=== PATIENT | female | born 1960 | race Caucasian/White ===

== ENCOUNTER 2022-09-16 15:57 | Emergency (ER) | payer MEDICAID ==
[~2022-09-16] VITALS: Ht 175 cm; Wt 80.0 kg
[2022-09-16] MEDS ORDERED: ADENOSINE 6 MG/2 ML (ADENOCARD) VIAL IV ONE ×2 (16:14→16:30)
[2022-09-16] MEDS ORDERED: NS IV 1000 ML 1,000 ML IV STA (16:19)
[2022-09-16] MEDS ORDERED: NS IV 1000 ML 1,000 ML ONE (16:19)
--- NOTE | 2022-09-16 16:19 | ED Cardiac General ---
History of Present Illness General Chief Complaint: Chest Pain Stated Complaint: BP HIGH,HEARTRATE HIGH,CP Source: patient, family Exam Limitations: no limitations History of Present Illness Date Seen by Provider: Sep 16, 2022 Time Seen by Provider: 15:59 Initial Comments 61-year-old female with past medical history of prediabetes and SVT coming in due to heart palpitations. Started around 230 this afternoon where she felt like her heart was racing. Feels a little lightheaded with it. Noticed that her blood pressure was elevated to the 180s systolic. Only medication she takes daily is metformin. Has gone to the ER many years ago for SVT in which she received adenosine. She is also had a stress test since then which was normal. Otherwise denying any other acute complaints. The only stimulant she uses is coffee, and she had about a half a cup this morning. Allergies and Home Medications Allergies Coded Allergies: No Known Drug Allergies (Unverified , 09/16/22) Patient Home Medication List Home Medication List Reviewed: Yes Review of Systems Review of Systems Constitutional: dizziness; No fever EENTM: No Symptoms Reported Respiratory: No Symptoms Reported Cardiovascular: Palpitations Gastrointestinal: No Symptoms Reported Genitourinary: No Symptoms Reported Musculoskeletal: no symptoms reported Skin: no symptoms reported Psychiatric/Neurological: No Symptoms Reported Endocrine: No Symptoms Reported Hematologic/Lymphatic: No Symptoms Reported All Other Systems Reviewed Negative Unless Noted: Yes Past Ygdrejz-Phpbsn-Wgjilz Hx Patient Social History Tobacco Use?: No Past Medical History Surgeries: No Physical Exam Vital Signs Capillary Refill : Height, Weight, BMI Height: '" Weight: lbs. oz. kg; BMI Method: General Appearance: WD/WN, Anxious HEENT: PERRL/EOMI, Normal ENT Inspection, Pharynx Normal Neck: Full Range of Motion, Normal Inspection, Non Tender, Supple Respiratory: Chest Non Tender, Lungs Clear, Normal Breath Sounds, No Accessory Muscle Use, No Respiratory Distress Cardiovascular: No Edema, Normal Peripheral Pulses, Tachycardia Gastrointestinal: Normal Bowel Sounds, Non Tender, Soft; No Distended, No Guarding Extremity: Normal Capillary Refill, Normal Inspection, Normal Range of Motion, Non Tender, No Calf Tenderness, No Pedal Edema Neurologic/Psychiatric: Alert, No Motor/Sensory Deficits, Normal Mood/Affect Skin: Normal Color, Warm/Dry Lymphatic: No Adenopathy Progress/Results/Core Measures Results/Orders My Orders Orders - OLEG RICHARDSON MD Adenosine Injection (Adenocard Injection (09/16/22 16:14) Ns Iv 1000 Ml (Sodium Chloride 0.9%) (09/16/22 16:19) Adenosine Injection (Adenocard Injection (09/16/22 16:30) Diltiazem Cd 24 Hr Capsule (Cardizem Cd (09/17/22 09:00) Ns Iv 1000 Ml (Sodium Chloride 0.9%) (09/16/22 16:19) Ekg Tracing (09/16/22 16:22) Ekg Tracing (09/16/22 16:22) Diltiazem Cd 24 Hr Capsule (Cardizem Cd (09/16/22 16:34) Medications Given in ED Current Medications Medications Dose Ordered Sig/Gely Route Start Time Stop Time Status Last Admin Dose Admin Adenosine 12 mg ONCE ONCE IV 09/16/22 16:30 12 16:31 DC 09/16/22 16:36 12 MG Sodium Chloride 1,000 ml @ ud STK-MED ONCE .ROUTE 09/16/22 16:19 09/16/22 16:22 DC 09/16/22 16:44 1,000 MLS/HR Progress Progress Note : Progress Note 61-year-old female presenting for SVT. Patient was mildly hypertensive on presentation and was in stable SVT. Tried vagal maneuvers which were unsuccessful. An IV was then placed and she was given 12 mg of adenosine which converted her. She was given IV fluids followed by oral Cardizem afterwards. I will have her follow-up with cardiology given the repeat nature of this. Afterwards, she was completely asymptomatic and back to baseline Initial ECG Impression Date: Sep 16, 2022 Initial ECG Impression Time: 16:14 Initial ECG Rate: 182 Initial ECG Rhythm: SVT Comment Normal axis, some ST depression globally which is likely rate dependent with her SVT EKG : EKG Time: 16:21 Rate: 109 Rhythm: S.Tach Comment Narrow QRS, normal axis, no significant ST changes or T wave abnormality Departure Impression Primary Impression: SVT (supraventricular tachycardia) Disposition: 01 HOME, SELF-CARE Condition: Improved Departure-Patient Inst. Decision time for Depature: 17:15 Referrals: JOSEFINA ROSALES JR, MD Patient Instructions: Supraventricular Tachycardia (SVT) Add. Discharge Instructions: You into a rhythm called SVT. This is not particularly dangerous in most cases. Its not really related to anything such as a heart attack. I do recommend following up with a punchboard filling machine operator to see if there are any medications that can put you on to help prevent this from happening in the future. Dr. Rosales is a punchboard filling machine operator that follows here in [place], his numbers in this paperwork. Work/School Note: Family Work Note, Patient Received Medical Care In the Emergency Department On: Sep 16, 2022 Patient Will Be Able to Return to Work/School On: Sep 17, 2022 Work Release Form Date Seen in the Emergency Department: Sep 16, 2022 Return to Work: Sep 17, 2022 Restrictions: No Restrictions OLEG RICHARDSON MD Sep 16, 2022 16:19
[2022-09-16] MEDS ORDERED: dilTIAZem120 MG (CARDIZEM CD) CAP PO ONE (16:34)
[2022-09-16 17:45] VITALS: BP 164/79
[2022-09-17] MEDS ORDERED: dilTIAZem120 MG (CARDIZEM CD) CAP PO SCH (09:00)
== END 2022-09-16 17:12 | disposition home or self-care (01) ==
LOC: EDUNIT# 15:57 → ER FS 15:59
DX: I47.1 Supraventricular tachycardia (principal); R03.0 Elevated blood-pressure reading, without diagnosis of hypertension; Z79.84 Long term (current) use of oral hypoglycemic drugs
CPT/HCPCS: 93005

== ENCOUNTER → 2022-10-07 | Outpatient (CLI) | payer MEDICAID | LOC: CARDFS 13:40 | PROVIDERS: ATTEND Internal Medicine Cardiovascular Disease | DX: R94.31 Abnormal electrocardiogram [ECG] [EKG] (principal) | CPT/HCPCS: 93306 ==

== ENCOUNTER → 2022-10-16 | Outpatient (CLI) | payer MEDICAID ==
[~2022-10-16] MED LIST: CATHETER FLUSH 10 ML SYR IVP PRN
[2022-10-16 12:20] VITALS: BP 127/68
--- NOTE | 2022-10-16 15:36 | NUCLEAR STRESS TEST ---
TREADMILL NUCLEAR STRESS TEST Date of procedure: 10/16/2022. Primary care provider: No local physician. Admitting physician: Mikael Rosales Jr., MD. INDICATION: Abnormal electrocardiogram. BASELINE ELECTROCARDIOGRAM: Sinus rhythm with nonspecific T wave changes. STRESS TEST PROCEDURE: The patient was exercised for a total of 2 minutes and 50 seconds of the standard Faizan protocol achieving a maximum MET level of 4.4. The resting heart rate was 82 bpm and the peak heart rate was 141 bpm, which represents 88% of the maximum predicted heart rate. The resting blood pressure was 127/76 mmHg and the peak blood pressure was 151/87 mmHg. This represents a normal heart rate and a normal blood pressure response to exercise. The test was stopped due to target heart rate attained. There was no chest discomfort during the test. There were no arrhythmias during the test. There were no significant stress induced electrocardiogram changes. The patient exhibited fair exercise capacity for age. NUCLEAR PROCEDURE: The patient was administered 11 mCi of intravenous technetium 99m Tetrofosmin at rest for the rest images. The patient was subsequently administered 32.3 mCi of intravenous technetium 99 M Tetrofosmin at peak stress for the stress images. Following an appropriate wait after each injection, imaging was obtained. The images were subsequently processed and reformatted in the usual views. Gated imaging was obtained. The image quality was adequate with a mild degree of gastrointestinal attenuation artifact. CT attenuation correction was used as a adjunct to standard imaging. Both the corrected and uncorrected images were reviewed for interpretation. NUCLEAR RESULTS: There was normal myocardial perfusion in all segments without evidence of infarction or ischemia. There was normal left ventricular chamber size with an end-diastolic volume of 40 mL and an end-systolic volume of 15 mL. There was no evidence of transient ischemic dilatation. The TID ratio was 1.25. There was normal wall motion in all segments with a calculated ejection fraction of 64%. IMPRESSION: 1. Normal heart rate and blood pressure response to exercise. 2. There was no exercise-induced chest discomfort, arrhythmias, or electrocardiogram changes during the test. 3. The patient exhibited fair exercise capacity for age at 2 minutes and 50 seconds of the Faizan protocol. 4. There was normal myocardial perfusion in all segments without evidence of infarction or ischemia. 5. There was normal wall motion in all segments with a calculated ejection fraction of 64%. Certain portions of this document may have been dictated utilizing voice windy gnition technology. Inherent to this technology, typographical and grammatical errors may exist. As much as I am diligent to identify and correct these mistakes, some errors may remain in the document. MIKAEL ROSALES JR, MD Oct 16, 2022 15:36
== END ==
LOC: CARD 11:00
PROVIDERS: ATTEND Internal Medicine Cardiovascular Disease
DX: R94.31 Abnormal electrocardiogram [ECG] [EKG] (principal)
CPT/HCPCS: 78452; 93017; A9502

== ENCOUNTER 2022-12-06 03:54 | Emergency (ER) | payer MEDICAID ==
[~2022-12-06] VITALS: Ht 157.4 cm; Wt 81.4 kg
--- NOTE | 2022-12-06 04:06 | ED Chest Pain ---
General Chief Complaint: Chest Pain Stated Complaint: CHEST PAIN History of Present Illness Date Seen by Provider: Dec 06, 2022 Time Seen by Provider: 04:04 Initial Comments 62-year-old female with PMH of HTN/SVT/prediabetes/ex-smoker/GERD, is here with complaints of acid reflux, substernal chest pain which is nonradiating, mild SOB, which began at midnight. Patient states she took 2 Prilosec at home without much improvement at that time. Denies cough, fever and chills, palpitations, dizziness, headache, abdominal pain, nausea and vomiting. Patient had a recent stress test which was negative. Allergies and Home Medications Allergies Coded Allergies: hydromorphone (Verified Allergy, Unknown, 12/06/22) Uncoded Allergies: SULFA (Allergy, Unknown, 12/06/22) Patient Home Medication List Home Medication List Reviewed: Yes Review of Systems Review of Systems Constitutional: no symptoms reported EENTM: No Symptoms Reported Respiratory: No Symptoms Reported Cardiovascular: Chest Pain Gastrointestinal: Other (Acid reflux) Genitourinary: No Symptoms Reported Musculoskeletal: no symptoms reported Skin: no symptoms reported Psychiatric/Neurological: No Symptoms Reported Endocrine: See HPI Hematologic/Lymphatic: No Symptoms Reported Past Jnqscki-Gjdxae-Tfpayh Hx Past Medical History Surgeries: No Physical Exam Vital Signs Vital Signs - First Documented 12/06/22 03:55 Temp 36.3 Pulse 86 Resp 18 B/P (MAP) 170/86 (114) Pulse Ox 97 O2 Delivery Room Air Capillary Refill : Height, Weight, BMI Height: '" Weight: lbs. oz. kg; 26.00 BMI Method: General Appearance: No Apparent Distress, WD/WN, Obese HEENT: PERRL/EOMI Neck: Full Range of Motion Respiratory: Chest Non Tender, Lungs Clear, Normal Breath Sounds Cardiovascular: Regular Rate, Rhythm, No Edema, Normal Peripheral Pulses Gastrointestinal: Normal Bowel Sounds, Non Tender, Soft Extremity: Normal Range of Motion Neurologic/Psychiatric: Alert, Oriented x3, No Motor/Sensory Deficits Skin: Normal Color Progress/Results/Core Measures Results/Orders Lab Results Laboratory Tests Test 12/06/22 04:05 Range/Units White Blood Count 10.9 4.3-11.0 10^3/uL Red Blood Count 5.24 H 3.80-5.11 10^6/uL Hemoglobin 15.2 11.5-16.0 g/dL Hematocrit 46 35-52 % Mean Corpuscular Volume 87 80-99 fL Mean Corpuscular Hemoglobin 29 25-34 pg Mean Corpuscular Hemoglobin Concent 33 32-36 g/dL Red Cell Distribution Width 12.7 10.0-14.5 % Platelet Count 281 130-400 10^3/uL Mean Platelet Volume 10.2 9.0-12.2 fL Immature Granulocyte % (Auto) 0 % Neutrophils (%) (Auto) 59 42-75 % Lymphocytes (%) (Auto) 30 12-44 % Monocytes (%) (Auto) 6 0-12 % Eosinophils (%) (Auto) 4 0-10 % Basophils (%) (Auto) 1 0-10 % Neutrophils # (Auto) 6.4 1.8-7.8 10^3/uL Lymphocytes # (Auto) 3.2 1.0-4.0 10^3/uL Monocytes # (Auto) 0.7 0.0-1.0 10^3/uL Eosinophils # (Auto) 0.4 H 0.0-0.3 10^3/uL Basophils # (Auto) 0.1 0.0-0.1 10^3/uL Immature Granulocyte # (Auto) 0.0 0.0-0.1 10^3/uL Prothrombin Time 11.9 L 12.2-14.7 SEC INR Comment 0.8 0.8-1.4 Activated Partial Thromboplast Time 27 24-35 SEC Sodium Level 140 135-145 MMOL/L Potassium Level 3.9 3.6-5.0 MMOL/L Chloride Level 104 98-107 MMOL/L Carbon Dioxide Level 24 21-32 MMOL/L Anion Gap 12 5-14 MMOL/L Blood Urea Nitrogen 16 7-18 MG/DL Creatinine 0.91 0.60-1.30 MG/DL Estimat Glomerular Filtration Rate 71 BUN/Creatinine Ratio 18 Glucose Level 146 H 70-105 MG/DL Calcium Level 9.4 8.5-10.1 MG/DL Corrected Calcium 9.0 8.5-10.1 MG/DL Magnesium Level 2.0 1.6-2.4 MG/DL Total Bilirubin 0.3 0.1-1.0 MG/DL Aspartate Amino Transf (AST/SGOT) 15 5-34 U/L Alanine Aminotransferase (ALT/SGPT) 17 0-55 U/L Alkaline Phosphatase 105 40-136 U/L Troponin I < 0.30 <0.30 NG/ML Total Protein 7.6 6.4-8.2 GM/DL Albumin 4.5 3.2-4.5 GM/DL My Orders Orders - ERIN MARSHALL MD Chest 1 View Ap/Pa Only (12/06/22 04:06) Cbc With Automated Diff (12/06/22 04:07) Magnesium (12/06/22 04:07) Ekg Tracing (12/06/22 04:07) Comprehensive Metabolic Panel (12/06/22 04:07) Protime With Inr (12/06/22 04:07) Partial Thromboplastin Time (12/06/22 04:07) O2 (12/06/22 04:07) Monitor-Rhythm Ecg Trace Only (12/06/22 04:07) Aspirin Chewable Tablet (Baby Aspirin Ch (12/06/22 04:15) Ed Iv/Invasive Line Start (12/06/22 04:07) Troponin I Fs (12/06/22 04:07) Famotidine Injection (Pepcid Injection) (12/06/22 04:09) Cbc With Automated Diff (12/06/22 04:19) Antacid Suspension (Mylanta Suspension (12/06/22 05:00) Lidocaine 2% Viscous 15 Ml (Xylocaine Vi (12/06/22 05:00) Diphenhydramine Oral Soln (Benadryl Oral (12/06/22 05:00) Medications Given in ED Current Medications Medications Dose Ordered Sig/Gely Route Start Time Stop Time Status Last Admin Dose Admin Aspirin 324 mg ONCE ONCE PO 12/06/22 04:15 12/06/22 04:16 DC 12/06/22 04:14 324 MG Vital Signs/I&O 12/06/22 03:55 Temp 36.3 Pulse 86 Resp 18 B/P (MAP) 170/86 (114) Pulse Ox 97 O2 Delivery Room Air Progress Progress Note : Progress Note 1. ACS RULE OUT: ACUTE GERD EXACERBATION: - CXR: - Labs unremarkable - Troponin/ EKG: non-ischemic - ASA 324 mg STAT - Pepcid 20mg iv STAT - GI cocktail: with resolution of symptoms -Patient normally takes Prilosec at home for GERD -Advised to add Pepcid 20 mg daily, and Maalox 3 times daily as needed. -Advised not to eat spicy, greasy foods at this time -Patient is not having a cardiac event, and history and resolution of symptoms with medications point to an acute GERD exacerbation -Follow-up with PCP in the next 3 to 7 days -The patient was seen in the ED, and treated appropriately to presentation at a specific point in time. Patient is informed that there is a possibility that disease and illness can evolve and change in acuity rapidly or slowly after patient is discharged from the ER. Precautionary advice given to the patient for immediate return to ER if symptoms worsen or do not resolve, and to seek em ergency care sooner rather than later. Pt also advised on the importance of PCP follow up and compliance with management and follow up plan with PCP and/or specialist, as this is part of the management plan. Pt verbally expressed understanding. Initial ECG Impression Date: Dec 06, 2022 Initial ECG Impression Time: 04:00 Initial ECG Rate: 91 Initial ECG Rhythm: Normal Sinus Initial ECG Intervals: Normal Initial ECG Impression: Normal Initial ECG Comparisson: No Previous ECG Available Departure Impression Primary Impression: GERD (gastroesophageal reflux disease) Qualified Codes: K21.00 - Gastro-esophageal reflux disease with esophagitis, without bleeding Additional Impression: Ruled out for myocardial infarction Disposition: 01 HOME, SELF-CARE Condition: Improved Departure-Patient Inst. Referrals: NO,LOCAL PHYSICIAN (PCP/Family) Primary Care Physician Patient Instructions: Chest Pain That Is Not Caused by the Heart (DC), Acid Reflux and Gastroesophageal Reflux Disease in Adults, Acid Reflux and GERD in Adults (DC) Add. Discharge Instructions: -Advised to add Pepcid 20 mg daily, and Maalox 3 times daily as needed. -Advised not to eat spicy, greasy foods at this time -Follow-up with PCP in the next 3 to 7 days All discharge instructions reviewed with patient and/or family. Voiced understanding. ERIN MARSHALL MD Dec 06, 2022 04:06
[2022-12-06] MEDS ORDERED: FAMOTIDINE 20MG/2ML IV (PEPCID) IV STA (04:09)
[2022-12-06 04:14] LABS: BASOPHILS # (AUTO) 0.1 10^3/uL (0.0-0.1); BASOPHILS % (AUTO) 1 % (0-10); EOSINOPHILS # (AUTO) 0.4 10^3/uL (0.0-0.3); EOSINOPHILS % (AUTO) 4 % (0-10); HEMATOCRIT 46 % (35-52); HEMOGLOBIN 15.2 g/dL (11.5-16.0); LYMPHOCYTES # (AUTO) 3.2 10^3/uL (1.0-4.0); LYMPHOCYTES % (AUTO) 30 % (12-44); MEAN CORPUSCULAR HEMOGLOBIN 29 pg (25-34); MEAN CORPUSCULAR HGB CONC 33 g/dL (32-36); MEAN CORPUSCULAR VOLUME 87 fL (80-99); MEAN PLATELET VOLUME 10.2 fL (9.0-12.2); MONOCYTES # (AUTO) 0.7 10^3/uL (0.0-1.0); MONOCYTES % (AUTO) 6 % (0-12); NEUTROPHILS # (AUTO) 6.4 10^3/uL (1.8-7.8); NEUTROPHILS % (AUTO) 59 % (42-75); PLATELET COUNT 281 10^3/uL (130-400); WHITE BLOOD COUNT 10.9 10^3/uL (4.3-11.0)
[2022-12-06] MEDS ORDERED: ASPIRIN 81 MG CHEW (CHILDREN'S ASA) PO ONE (04:15)
[2022-12-06 04:26] LABS: INR 0.8 (0.8-1.4); PROTHROMBIN TIME PATIENT 11.9 SEC (12.2-14.7)
[2022-12-06 04:43] LABS: BILIRUBIN,TOTAL 0.3 MG/DL (0.1-1.0); CALCIUM 9.4 MG/DL (8.5-10.1); CREATININE SERUM 0.91 MG/DL (0.60-1.30); POTASSIUM 3.9 MMOL/L (3.6-5.0)
[2022-12-06 04:44] LABS: ALBUMIN 4.5 GM/DL (3.2-4.5); TOTAL PROTEIN 7.6 GM/DL (6.4-8.2)
[2022-12-06] MEDS ORDERED: LIDOCAINE 2% VISCOUS 15 ML UDC PO ONE (05:00)
[2022-12-06] MEDS ORDERED: diphenhydrAMINE 12.5 MG/5 ML UDC (BENADRYL) PO ONE (05:00)
[2022-12-06] MEDS ORDERED: ANTACID SUSP 30 ML UDC (MYLANTA) PO ONE (05:00)
[2022-12-06 05:14] VITALS: BP 142/82
--- NOTE | 2022-12-06 06:07 | Diagnostic Imaging Report ---
Indication: Chest pain Portable chest 4:04 AM Heart size and pulmonary vascularity are normal. Lungs are clear. There are no effusions or pneumothoraces. IMPRESSION: Negative chest Dictated by: Dictated on workstation # [id number]
== END 2022-12-06 05:15 | disposition home or self-care (01) ==
LOC: EDUNIT# 03:54 → ER FS 03:58
DX: K21.9 Gastro-esophageal reflux disease without esophagitis (principal); E66.9 Obesity, unspecified; Z68.32 Body mass index [BMI] 32.0-32.9, adult
CPT/HCPCS: 36415; 71045; 80053; 83735; 84484; 85025; 85610; 85730; 93005; 93041

== ENCOUNTER 2023-05-04 19:28 | Emergency (ER) | payer MEDICAID ==
[~2023-05-04] VITALS: Ht 157.8 cm; Wt 81.0 kg
[2023-05-04 19:54] LABS: BASOPHILS # (AUTO) 0.1 10^3/uL (0.0-0.1); BASOPHILS % (AUTO) 1 % (0-10); EOSINOPHILS # (AUTO) 0.5 10^3/uL (0.0-0.3); EOSINOPHILS % (AUTO) 5 % (0-10); HEMATOCRIT 41 % (35-52); HEMOGLOBIN 13.7 g/dL (11.5-16.0); LYMPHOCYTES % (AUTO) 30 % (12-44); MEAN CORPUSCULAR HEMOGLOBIN 29 pg (25-34); MEAN CORPUSCULAR HGB CONC 33 g/dL (32-36); MEAN CORPUSCULAR VOLUME 87 fL (80-99); MEAN PLATELET VOLUME 10.3 fL (9.0-12.2); MONOCYTES # (AUTO) 0.6 10^3/uL (0.0-1.0); MONOCYTES % (AUTO) 6 % (0-12); NEUTROPHILS # (AUTO) 5.7 10^3/uL (1.8-7.8); NEUTROPHILS % (AUTO) 58 % (42-75); PLATELET COUNT 257 10^3/uL (130-400); WHITE BLOOD COUNT 9.9 10^3/uL (4.3-11.0)
[2023-05-04] MEDS ORDERED: DULO60CA59 PO (20:00)
[2023-05-04] MEDS ORDERED: PANT40TA52 PO (20:00)
[2023-05-04] MEDS ORDERED: NITROGLYCERIN 0.4 MG SL TABS BTL 25'S SL ONE (20:00)
[2023-05-04] MEDS ORDERED: ONDA4TAB11 SL (20:00)
[2023-05-04] MEDS ORDERED: ASPIRIN 81 MG CHEWABLE TABLET PO ONE (20:00)
[2023-05-04] MEDS ORDERED: TRZ50T PO (20:00)
[2023-05-04 20:02] LABS: INR 0.9 (0.8-1.4); PROTHROMBIN TIME PATIENT 12.3 SEC (12.2-14.7)
--- NOTE | 2023-05-04 20:03 | Diagnostic Imaging Report ---
Chest pain EXAMINATION: Chest 05/04/2023 COMPARISON: 12/06/2022 FINDINGS: The heart is prominent, pulmonary vasculature unremarkable. Lungs and pleural spaces clear other than linear atelectasis or scarring in the upper lungs similar to previous imaging. IMPRESSION: 1. Chronic findings, no acute disease. Dictated by: Dictated on workstation # [id number]
[2023-05-04 20:15] LABS: ALANINE AMINOTRANSFERASE 15 U/L (0-55); ALBUMIN 4.5 GM/DL (3.2-4.5); ALKALINE PHOSPHATASE 96 U/L (40-136); BILIRUBIN,TOTAL 0.2 MG/DL (0.1-1.0); BUN/CREATININE RATIO 16; CALCIUM 9.5 MG/DL (8.5-10.1); CARBON DIOXIDE 25 MMOL/L (21-32); CHLORIDE 104 MMOL/L (98-107); CREATININE SERUM 0.97 MG/DL (0.60-1.30); GFR ESTIMATED 66; GLUCOSE 129 MG/DL (70-105); POTASSIUM 3.7 MMOL/L (3.6-5.0); SODIUM 141 MMOL/L (135-145); TOTAL PROTEIN 7.1 GM/DL (6.4-8.2)
--- NOTE | 2023-05-04 20:42 | ED Chest Pain ---
General Chief Complaint: Chest Pain Stated Complaint: CHEST PAIN Nursing Triage Note: Patient arrival per POV ambulating into ED being assisted by WC to ED 5 with c/o chest pain. 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 Hx SVT. Pt is very anxious moving feet and arms frequently. Source: patient, family (Sister) Exam Limitations: no limitations History of Present Illness Date Seen by Provider: May 04, 2023 Time Seen by Provider: 19:39 Initial Comments 62-year-old male patient with history of anxiety, migraine, prediabetes, SVT, GERD, seasonal allergies presented POV with complaining of chest pain that started 20 minutes prior to arrival to while she was sitting in the car as a constant sharp pain with radiation to right side of her neck and ear as a severe 10/10 pain that decreased to 5/10 at arrival to ER. Patient complaining of mild dizziness without shortness of breath, palpitation, nausea and vomiting, cough, fever and chills. Patient stated the pain getting worse with taking deep breath. Patient states that she had history of previous chest pain with her SVT episode without radiation to her neck. Patient did not take any medication prior to arrival to ER for her pain. Allergies and Home Medications Allergies Coded Allergies: hydromorphone (Verified Allergy, Unknown, 12/06/22) Uncoded Allergies: SULFA (Allergy, Unknown, 12/06/22) Patient Home Medication List Home Medication List Reviewed: Yes Duloxetine HCl (Duloxetine HCl) 60 Mg Capsule.dr, 60 MG PO DAILY, (Reported) Entered as Reported by: ANKUSH TORRES on 05/04/231999 Last Action: New Order Ondansetron (Ondansetron Odt) 4 Mg Tab.rapdis, 0.4 MG SL Q6H PRN for NAUSEA/ VOMITING, (Reported) Entered as Reported by: ANKUSH TORRES on 05/04/231999 Last Action: New Order Pantoprazole Sodium (Pantoprazole Sodium) 40 Mg Tablet.dr, 40 MG PO DAILY, (Reported) Entered as Reported by: ANKUSH TORRES on 05/04/231999 Last Action: New Order Trazodone HCl (Trazodone HCl) 50 Mg Tablet, 50 MG PO HS, (Reported) Entered as Reported by: ANKUSH TORRES on 05/04/231999 Last Action: New Order Review of Systems Review of Systems Constitutional: see HPI EENTM: No Symptoms Reported Respiratory: No Symptoms Reported Cardiovascular: See HPI Gastrointestinal: No Symptoms Reported Genitourinary: No Symptoms Reported Musculoskeletal: see HPI Skin: no symptoms reported Psychiatric/Neurological: See HPI Endocrine: No Symptoms Reported Hematologic/Lymphatic: No Symptoms Reported All Other Systems Reviewed Negative Unless Noted: Yes Past Aiepyie-Twiqik-Ijiinz Hx Patient Social History Tobacco Use?: No Smoking Status: Former Smoker Use of E-Cig and/or Vaping dev: No Substance use?: No Alcohol Use?: No Immunizations Up To Date First/Initial COVID19 Vaccinat: Date ? Second COVID19 Vaccination Casa: Date ? Third COVID19 Vaccination Date: Date ? 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 oz. kg; 32.00 BMI Method: General Appearance: No Apparent Distress, Anxious, Obese HEENT: PERRL/EOMI, Normal ENT Inspection, Pharynx Normal Neck: Full Range of Motion, Normal Inspection Respiratory: Chest Non Tender, Lungs Clear, Normal Breath Sounds, No Accessory Muscle Use, No Respiratory Distress Cardiovascular: Regular Rate, Rhythm, No Edema, No Gallop, No JVD, No Murmur Gastrointestinal: Normal Bowel Sounds, No Organomegaly, No Pulsatile Mass, Non Tender, Soft Extremity: Normal Capillary Refill, Normal Inspection, Normal Range of Motion, Non Tender, No Calf Tenderness Neurologic/Psychiatric: Alert, Oriented x3, No Motor/Sensory Deficits Skin: Normal Color Critical Care Note Critical Care Total Time (minutes) 60 Progress/Results/Core Measures Results/Orders Lab Results Laboratory Tests Test 05/04/23 19:40 05/04/23 21:26 Range/Units White Blood Count 9.9 4.3-11.0 10^3/uL Red Blood Count 4.74 3.80-5.11 10^6/uL Hemoglobin 13.7 11.5-16.0 g/dL Hematocrit 41 35-52 % Mean Corpuscular Volume 87 80-99 fL Mean Corpuscular Hemoglobin 29 25-34 pg Mean Corpuscular Hemoglobin Concent 33 32-36 g/dL Red Cell Distribution Width 12.7 10.0-14.5 % Platelet Count 257 130-400 10^3/uL Mean Platelet Volume 10.3 9.0-12.2 fL Immature Granulocyte % (Auto) 0 % Neutrophils (%) (Auto) 58 42-75 % Lymphocytes (%) (Auto) 30 12-44 % Monocytes (%) (Auto) 6 0-12 % Eosinophils (%) (Auto) 5 0-10 % Basophils (%) (Auto) 1 0-10 % Neutrophils # (Auto) 5.7 1.8-7.8 10^3/uL Lymphocytes # (Auto) 3.0 1.0-4.0 10^3/uL Monocytes # (Auto) 0.6 0.0-1.0 10^3/uL Eosinophils # (Auto) 0.5 H 0.0-0.3 10^3/uL Basophils # (Auto) 0.1 0.0-0.1 10^3/uL Immature Granulocyte # (Auto) 0.0 0.0-0.1 10^3/uL Prothrombin Time 12.3 12.2-14.7 SEC INR Comment 0.9 0.8-1.4 Sodium Level 141 135-145 MMOL/L Potassium Level 3.7 3.6-5.0 MMOL/L Chloride Level 104 98-107 MMOL/L Carbon Dioxide Level 25 21-32 MMOL/L Anion Gap 12 5-14 MMOL/L Blood Urea Nitrogen 16 7-18 MG/DL Creatinine 0.97 0.60-1.30 MG/DL Estimat Glomerular Filtration Rate 66 BUN/Creatinine Ratio 16 Glucose Level 129 H 70-105 MG/DL Calcium Level 9.5 8.5-10.1 MG/DL Corrected Calcium 9.1 8.5-10.1 MG/DL Total Bilirubin 0.2 0.1-1.0 MG/DL Aspartate Amino Transf (AST/SGOT) 17 5-34 U/L Alanine Aminotransferase (ALT/SGPT) 15 0-55 U/L Alkaline Phosphatase 96 40-136 U/L Troponin I < 0.30 < 0.30 <0.30 NG/ML Pro-B-Type Natriuretic Peptide 106.5 <125.0 PG/ML Total Protein 7.1 6.4-8.2 GM/DL Albumin 4.5 3.2-4.5 GM/DL My Orders Orders - ADRIAN CHAVEZ MD Ekg Tracing (05/04/23 19:31) Cbc With Automated Diff (05/04/23 19:47) Chest 1 View Ap/Pa Only (05/04/23 19:47) Ekg Tracing (05/04/23 19:47) Comprehensive Metabolic Panel (05/04/23 19:47) Protime With Inr (05/04/23 19:47) Monitor-Rhythm Ecg Trace Only (05/04/23 19:47) Aspirin Chewable Tablet (Baby Aspirin Ch (05/04/23 20:00) Nitroglycerin 0.4 Mg Btl 25's (Nitrostat (05/04/23 20:00) Ed Iv/Invasive Line Start (05/04/23 19:47) Troponin I Fs (05/04/23 19:47) Probnp Fs (05/04/23 19:47) Troponin I Fs (05/04/23 21:40) Medications Given in ED Current Medications Medications Dose Ordered Sig/Gely Route Start Time Stop Time Status Last Admin Dose Admin Aspirin 324 mg ONCE ONCE PO 05/04/23 20:00 05/04/23 20:01 DC 05/04/23 20:02 324 MG Nitroglycerin 0.4 mg ONCE ONCE SL 05/04/23 20:00 05/04/23 20:01 DC 05/04/23 20:03 0.4 MG Vital Signs/I&O 05/04/23 19:30 Temp 36.3 Pulse 93 Resp 18 B/P (MAP) 149/85 (106) Pulse Ox 98 Blood Pressure Mean: 106 Progress Progress Note : Progress Note Patient with ANA score of 0 and complaining of episode of chest pain. 25 to ER. Patient had history of anxiety and taking several medication for anxiety. Patient had unremarkable physical exam and vital signs and EKG and chest x-ray. CBC, CMP, troponin, BNP, PT/INR was ordered and reviewed by me and did not show acute finding. Repeat troponin after 2 hours was negative. Patient treated with aspirin and nitro x1 and her chest pain gradually disappeared. Patient advised to follow-up with primary care physician and continue home medication. Initial ECG Impression Date: May 04, 2023 Initial ECG Impression Time: 19:32 Initial ECG Rate: 89 Initial ECG Rhythm: Normal Sinus Initial ECG Intervals: Normal Initial ECG Impression: Normal Comment EKG interpreted by me. EKG showed normal sinus rhythm at rate of 89, normal P axis, DC interval of 124 and QT of 362 and QTc of 408, QRS duration of 95, no acute ST and T wave elevation. Diagnostic Imaging Diagonstic Imaging: Xray Plain Films/CT/US/NM/MRI: chest Comments 1 view chest x-ray interpreted by me and did not show acute finding. Chest x-ray interpreted by radiologist and reviewed by me and showed: [facility] [place], [place] NAME: DENNYS CONROY [facility] REC#: [id number] PT STATUS: REG ER : 1960 PHYSICIAN: ADRIAN CHAVEZ MD ADMIT DATE: 05/04/23/ER FS Draft Date of Exam:05/04/23 CHEST 1 VIEW AP/PA ONLY Chest pain EXAMINATION: Chest 05/04/2023 COMPARISON: 12/06/2022 FINDINGS: The heart is prominent, pulmonary vasculature unremarkable. Lungs and pleural spaces clear other than linear atelectasis or scarring in the upper lungs similar to previous imaging. IMPRESSION: 1. Chronic findings, no acute disease. Dictated on workstation # [id number] Dict: 05/04/231955 Trans: 05/04/232001 [facility] [id number] Interpreted by: MARLENY NEELY MD Electronically signed by: Departure Impression Primary Impression: Non-cardiac chest pain Disposition: 01 HOME, SELF-CARE Condition: Improved Departure-Patient Inst. Decision time for Depature: 21:57 Referrals: NO,LOCAL PHYSICIAN (PCP/Family) Primary Care Physician Patient Instructions: Chest Pain That Is Not Caused by the Heart (DC) Add. Discharge Instructions: Continue home medication Follow-up with your primary care physician in 2 to 3 days Return to ER as needed All discharge instructions reviewed with patient and/or family. Voiced understanding. ADRIAN CHAVEZ MD May 04, 2023 20:42
[2023-05-04 22:08] VITALS: BP 115/99
== END 2023-05-04 22:08 | disposition home or self-care (01) ==
LOC: EDUNIT# 19:28 → ER FS 19:29
DX: R07.89 Other chest pain (principal); F41.9 Anxiety disorder, unspecified; E66.9 Obesity, unspecified; Z87.891 Personal history of nicotine dependence; Z68.32 Body mass index [BMI] 32.0-32.9, adult; Z79.899 Other long term (current) drug therapy
CPT/HCPCS: 36415; 71045; 80053; 83880; 84484; 85025; 85610; 93005; 93041

== ENCOUNTER 2023-09-02 23:19 | Emergency (ER) | payer MEDICAID, OTHER ==
[~2023-09-02] VITALS: Ht 157 cm; Wt 83.0 kg
[~2023-09-02 23:19] MED LIST changes: -CATHETER FLUSH 10 ML SYR IVP PRN; +DULO60CA59 PO; +ONDA4TAB11 SL; +PANT40TA52 PO; +TRZ50T PO
[2023-09-02] MEDS ORDERED: ADENOSINE INJECTION 6 MG/2 ML VIAL IV ONE ×2 (23:30→23:36)
[2023-09-02] MEDS ORDERED: NS IV 1000 ML 1,000 ML IV SCH (23:30)
--- NOTE | 2023-09-02 23:33 | ED Cardiac General ---
History of Present Illness General Stated Complaint: CHEST DISCOMFORT|RAPID HEART RATE|NAUSEA|SVT Source: patient, family Exam Limitations: no limitations History of Present Illness Date Seen by Provider: Sep 02, 2023 Time Seen by Provider: 23:30 Initial Comments Patient presents complaining of elevated heart rate. History of SVT with conversion using adenosine last September. Symptoms started around 10:00. She did take p.o. Cardizem, 30 mg prior to arrival approximately 40 minutes ago without relief. She has mild chest discomfort. No shortness of breath. Patient reports she has been sick with bronchitis recently and has taken 2 rounds of prednisone and Augmentin and is starting to feel better from that aspect. Allergies and Home Medications Allergies Coded Allergies: hydromorphone (Verified Allergy, Unknown, 12/06/22) Uncoded Allergies: SULFA (Allergy, Unknown, 12/06/22) Patient Home Medication List Home Medication List Reviewed: Yes Duloxetine HCl (Duloxetine HCl) 60 Mg Capsule.dr, 60 MG PO DAILY, (Reported) Entered as Reported by: ANKUSH TORRES on 05/04/231999 Ondansetron (Ondansetron Odt) 4 Mg Tab.rapdis, 0.4 MG SL Q6H PRN for NAUSEA/VOMITING, (Reported) Entered as Reported by: ANKUSH TORRES on 05/04/231999 Pantoprazole Sodium (Pantoprazole Sodium) 40 Mg Tablet.dr, 40 MG PO DAILY, (Reported) Entered as Reported by: ANKUSH TORRES on 05/04/231999 Trazodone HCl (Trazodone HCl) 50 Mg Tablet, 50 MG PO HS, (Reported) Entered as Reported by: ANKUSH TORRES on 05/04/231999 Review of Systems Review of Systems Constitutional: no symptoms reported, see HPI (All other systems negative except as documented in HPI.) Past [id number] Hx Immunizations Up To Date First/Initial COVID19 Vaccinat: Date ? Second COVID19 Vaccination Casa: Date ? Third COVID19 Vaccination Date: Date ? Past Medical History Surgery/Hospitalization HX: SVT, Pre-Diab, GERD, Seasonal allergies, Anxiety, Migraines, Hysterectomy, Appendectomy, Cholecystectomy, Shoulder surgery, Foot surgery Surgeries: No Physical Exam Vital Signs Capillary Refill : Height, Weight, BMI Height: '" Weight: lbs. oz. kg; 32.00 BMI Method: General Appearance: No Apparent Distress, WD/WN HEENT: PERRL/EOMI, TMs Normal, Normal ENT Inspection, Pharynx Normal Neck: Full Range of Motion, Normal Inspection, Non Tender Respiratory: Chest Non Tender, Lungs Clear, Normal Breath Sounds, No Accessory Muscle Use, No Respiratory Distress Cardiovascular: No Edema, No Gallop, No JVD, No Murmur, Normal Peripheral Pulses, Tachycardia Gastrointestinal: Normal Bowel Sounds, No Organomegaly, No Pulsatile Mass, Non Tender Extremity: Normal Capillary Refill, Normal Inspection, Normal Range of Motion, Non Tender, No Calf Tenderness, No Pedal Edema Neurologic/Psychiatric: Alert, Oriented x3, No Motor/Sensory Deficits, Normal Mood/Affect Skin: Normal Color, Warm/Dry Lymphatic: No Adenopathy Progress/Results/Core Measures Results/Orders Lab Results Laboratory Tests Test 09/02/23 23:30 Range/Units White Blood Count 15.0 H 4.3-11.0 10^3/uL Red Blood Count 5.47 H 3.80-5.11 10^6/uL Hemoglobin 15.9 11.5-16.0 g/dL Hematocrit 47 35-52 % Mean Corpuscular Volume 87 80-99 fL Mean Corpuscular Hemoglobin 29 25-34 pg Mean Corpuscular Hemoglobin Concent 34 32-36 g/dL Red Cell Distribution Width 12.8 10.0-14.5 % Platelet Count 318 130-400 10^3/uL Mean Platelet Volume 10.3 9.0-12.2 fL Immature Granulocyte % (Auto) 1 % Neutrophils (%) (Auto) 71 42-75 % Lymphocytes (%) (Auto) 22 12-44 % Monocytes (%) (Auto) 5 0-12 % Eosinophils (%) (Auto) 1 0-10 % Basophils (%) (Auto) 1 0-10 % Neutrophils # (Auto) 10.6 H 1.8-7.8 10^3/uL Lymphocytes # (Auto) 3.3 1.0-4.0 10^3/uL Monocytes # (Auto) 0.8 0.0-1.0 10^3/uL Eosinophils # (Auto) 0.2 0.0-0.3 10^3/uL Basophils # (Auto) 0.1 0.0-0.1 10^3/uL Immature Granulocyte # (Auto) 0.1 0.0-0.1 10^3/uL Neutrophils % (Manual) 63 % Lymphocytes % (Manual) 16 % Monocytes % (Manual) 5 % Eosinophils % (Manual) 4 % Band Neutrophils 2 % Atypical Lymphocytes 1 % Reactive Lymphocytes 9 % Toxic Granulation 2+ Platelet Estimate NORMAL Blood Morphology Comment NORMAL Sodium Level 139 135-145 MMOL/L Potassium Level 3.4 L 3.6-5.0 MMOL/L Chloride Level 101 98-107 MMOL/L Carbon Dioxide Level 24 21-32 MMOL/L Anion Gap 14 5-14 MMOL/L Blood Urea Nitrogen 18 7-18 MG/DL Creatinine 0.99 0.60-1.30 MG/DL Estimat Glomerular Filtration Rate 64 BUN/Creatinine Ratio 18 Glucose Level 188 H 70-105 MG/DL Calcium Level 9.3 8.5-10.1 MG/DL Troponin I < 0.30 <0.30 NG/ML My Orders Orders - NEWTON ELDRIDGE DO Ns Iv 1000 Ml (Ns Iv 1000 Ml) (09/02/23 23:30) Adenosine Injection (Adenosine Injection (09/02/23 23:30) Cbc And Automated Diff (09/02/23 23:30) Basic Metabolic Panel (09/02/23 23:30) Troponin I Fs (09/02/23 23:30) Ekg Tracing (09/02/23 23:30) Adenosine Injection (Adenosine Injection (09/02/23 23:36) Manual Differential (09/02/23 23:30) Ondansetron Injection (Ondansetron Inj (09/03/23 00:15) Medications Given in ED Current Medications Medications Dose Ordered Sig/Gely Route Start Time Stop Time Status Last Admin Dose Admin Adenosine 6 mg ONCE ONCE IV 09/02/23 23:30 09/02/23 23:32 DC 09/02/23 23:33 6 MG Adenosine 6 mg STK-MED ONCE IV 09/02/23 23:36 09/02/23 23:39 DC 09/02/23 23:42 12 MG Progress Progress Note : Time: 00:06 Progress Note Patient seen for SVT with heart rate in the 190s. Mild chest pain. Patient given 6 mg adenosine push without improvement of symptoms so she was then given 12 mg which has improved her heart rate to the low 100s. She is currently receiving 1 L normal saline bolus and labs are pending. 0012: Patient's workup is unremarkable except for leukocytosis likely from recent prednisone use. Her heart rate has stabilized in the low 100s. Repeat EKG shows sinus tachycardia with a rate of 107, normal intervals, mildly inverted T wave in III but no other ST changes. She was slightly nauseated so she was given Zofran. Patient will finish IV fluid infusion and discharged home. Initial ECG Impression Date: Sep 02, 2023 Initial ECG Impression Time: 23:27 Initial ECG Rate: 192 Initial ECG Rhythm: SVT Initial ECG Impression: SVT Departure Impression Primary Impression: SVT (supraventricular tachycardia) Disposition: 01 HOME, SELF-CARE Condition: Stable Departure-Patient Inst. Referrals: ISATU EID MD (PCP/Family) Primary Care Physician Follow-up as needed. Patient Instructions: Supraventricular tachycardia (SVT) Add. Discharge Instructions: You may also follow-up with your java lead architect as needed. NEWTON ELDRIDGE DO Sep 02, 2023 23:33
[2023-09-02 23:43] LABS: BASOPHILS # (AUTO) 0.1 10^3/uL (0.0-0.1); BASOPHILS % (AUTO) 1 % (0-10); EOSINOPHILS # (AUTO) 0.2 10^3/uL (0.0-0.3); EOSINOPHILS % (AUTO) 1 % (0-10); HEMATOCRIT 47 % (35-52); HEMOGLOBIN 15.9 g/dL (11.5-16.0); LYMPHOCYTES # (AUTO) 3.3 10^3/uL (1.0-4.0); LYMPHOCYTES % (AUTO) 22 % (12-44); MEAN CORPUSCULAR HEMOGLOBIN 29 pg (25-34); MEAN CORPUSCULAR HGB CONC 34 g/dL (32-36); MEAN CORPUSCULAR VOLUME 87 fL (80-99); MEAN PLATELET VOLUME 10.3 fL (9.0-12.2); MONOCYTES # (AUTO) 0.8 10^3/uL (0.0-1.0); MONOCYTES % (AUTO) 5 % (0-12); NEUTROPHILS # (AUTO) 10.6 10^3/uL (1.8-7.8); NEUTROPHILS % (AUTO) 71 % (42-75); PLATELET COUNT 318 10^3/uL (130-400)
[2023-09-03 00:02] LABS: BAND NEUTROPHILS 2 %; EOSINOPHILS % (MANUAL) 4 %; LYMPHOCYTES % (MANUAL) 16 %; MONOCYTES % (MANUAL) 5 %; NEUTROPHILS % (MANUAL) 63 %; POTASSIUM 3.4 MMOL/L (3.6-5.0)
[2023-09-03 00:03] LABS: ATYPICAL LYMPHOCYTES 1 %; PLATELET ESTIMATE NORMAL; RBC MORPH NORMAL; REACTIVE LYMPHOCYTES 9 %; TOXIC GRANULATION/VACUOLAZATIO 2+
[2023-09-03 00:07] LABS: BUN/CREATININE RATIO 18; CALCIUM 9.3 MG/DL (8.5-10.1); CARBON DIOXIDE 24 MMOL/L (21-32); CHLORIDE 101 MMOL/L (98-107); CREATININE SERUM 0.99 MG/DL (0.60-1.30); GFR ESTIMATED 64; GLUCOSE 188 MG/DL (70-105); SODIUM 139 MMOL/L (135-145)
[2023-09-03] MEDS ORDERED: ONDANSETRON INJECTION 4 MG/2 ML (SDV) ONE (00:10)
[2023-09-03] MEDS ORDERED: ONDANSETRON INJECTION 4 MG/2 ML (SDV) IVP ONE (00:15)
[2023-09-03 00:35] VITALS: BP 109/60
== END 2023-09-03 00:40 | disposition home or self-care (01) ==
LOC: EDUNIT# 23:19 → ER FS 23:30
DX: I47.10 Supraventricular tachycardia, unspecified (principal); D72.829 Elevated white blood cell count, unspecified; R11.0 Nausea
CPT/HCPCS: 36415; 80048; 84484; 85007; 85027; 93005